=== PATIENT | female | born 1960 | race Caucasian/White ===

== ENCOUNTER 2022-11-19 13:36 | Emergency (ER) | payer MEDICARE ==
[2022-11-19] MEDS ORDERED: Dexamethasone 10 MG/ML VIAL ONE (14:13)
== END 2022-11-19 14:18 | disposition home or self-care (01) ==
LOC: BURERS 13:36
DX: U07.1 COVID-19 (principal)
CPT/HCPCS: 99283; J1100

== ENCOUNTER 2022-11-25 15:59 | Emergency (ER) | payer MEDICARE ==
[2022-11-25] MEDS ORDERED: methylPREDNISolone Sod Succ/PF 125 MG/2 ML VIAL ONE (16:33)
== END 2022-11-25 16:40 | disposition home or self-care (01) ==
LOC: BURERS 15:59
DX: U07.1 COVID-19 (principal); M79.605 Pain in left leg; I10 Essential (primary) hypertension
CPT/HCPCS: 96372; 99283; J2930